=== PATIENT | female | born 1995 | race Caucasian/White ===

== ENCOUNTER 2017-04-01 02:33 | Emergency (ER) | payer MEDICAID ==
[2017-04-01] MEDS ORDERED: Lidocaine 1% 20 ML MDV INJECT ONE (03:26)
--- NOTE | 2017-04-01 03:48 | EDM.PDOC ---
ED HPI GENERAL MEDICAL PROBLEM - General Chief Complaint: Laceration Stated Complaint: LT ANKLE LACERATION Time Seen by Provider: 04/01/17 03:30 Source of Information: Reports: Patient History Limitations: Reports: No Limitations - History of Present Illness INITIAL COMMENTS - FREE TEXT/NARRATIVE: 22 yo female here for a self inflicted leg laceration. Tetanus is UTD. Has a hx of "cutting". Sees a counselor. Onset: Today Onset Date: 04/01/17 Onset Time: 02:25 Duration: Minutes:, Constant Location: Reports: Lower Extremity, Left Quality: Reports: Burning Severity: Moderate Improves with: Reports: None Worsens with: Reports: Other (touching wound) Context: Reports: Other (Hx of "cutting") Associated Symptoms: Reports: No Other Symptoms Treatments [employer] DEVELOPMENT: Reports: Other (see below) (None) L medial ankle Pain Score (Numeric/FACES): 5 - Related Data Allergies Allergy/AdvReac Type Severity Reaction Status Date / Time amoxicillin Allergy Hives Verified 02/24/16 15:40 latex Allergy Rash Verified 02/24/16 15:41 Sulfa (Sulfonamide Allergy Hives Verified 02/24/16 15:41 Antibiotics) Home Meds: Home Meds Propranolol HCl [Inderal Xl] 120 mg PO BEDTIME 04/01/17 [History] Venlafaxine [Effexor XR] 300 mg PO DAILY 04/01/17 [History] hydrOXYzine Pamoate [Vistaril] 50 mg PO BEDTIME 04/01/17 [History] lamoTRIgine [LaMICtal] 200 mg PO BEDTIME 04/01/17 [History] Past Medical History - Past Health History Medical/Surgical History: Denies Medical/Surgical History Respiratory History: Reports: Asthma Musculoskeletal History: Reports: Fracture Other Musculoskeletal History: fx R wrist & 5th digit Neurological History: Reports: Concussion, Migraines Psychiatric History: Reports: Anxiety, Dementia, Other (See Below) Other Psychiatric History: borderline personality disorder Endocrine/Metabolic History: Reports: Obesity/BMI 30+ - Past Surgical History HEENT Surgical History: Reports: Oral Surgery Musculoskeletal Surgical History: Reports: None Social & Family History - Family History Family Medical History: Noncontributory - Tobacco Use Smoking Status *Q: Current Every Day Smoker Years of Tobacco use: 2 Packs/Tins Daily: 0.4 - Caffeine Use Caffeine Use: Reports: Coffee, Soda, Tea - Recreational Drug Use Recreational Drug Use: No Recreational Drug Type: Reports: Marijuana/Hashish Recreational Drug Use Frequency: Socially ED ROS GENERAL - Review of Systems Review Of Systems: See Below Constitutional: Reports: No Symptoms Skin: Reports: Wound Neurological: Reports: No Symptoms Psychiatric: Reports: Anxiety Hematologic/Lymphatic: Denies: Anemia, Easy Bleeding, Easy Bruising ED EXAM, SKIN/RASH Exam: See Below Exam Limited By: No Limitations General Appearance: Alert, WD/WN, No Apparent Distress Extremities: No Pedal Edema Neurological: Alert, Oriented, CN II-XII Intact, Normal Cognition, No Motor/ Sensory Deficits Psychiatric: Normal Affect, Normal Mood Skin: Warm, Dry, Normal Color, No Rash, Other (3.5 cm linear laceration to the medial L distal leg. Bleeding controlled on arrival. No sign of infection. ) Location, Skin: Lower Extremity, Left Characteristics: Linear Lymphatic: No Adenopathy Course - Vital Signs Text/Narrative:: Wound cleanded by nursing. Anesth locally with 6 ml of 1% lidocaine. Closure with simple sutures of 5-0 Ethilon. A dressing was applied. Last Recorded V/S: Last Vital Signs Temp 36.7 C 04/01/17 02:42 Pulse 93 04/01/17 02:42 Resp 18 04/01/17 02:42 BP 124/88 04/01/17 02:42 Pulse Ox 100 04/01/17 02:42 - Orders/Labs/Meds Meds: Medications Discontinued Medications Generic Name Dose Route Start Last Admin Trade Name Khushbu PRN Reason Stop Dose Admin Lidocaine HCl 10 ml 04/01/17 03:26 Xylocaine 1% INJECT 04/01/17 03:27 ONETIME ONE Departure - Departure Time of Disposition: 03:55 Disposition: Home, Self-Care 01 Condition: Good Clinical Impression: Deliberate self-cutting Leg laceration Qualifiers: Encounter type: initial encounter Laterality: left Qualified Code(s): S81.812A - Laceration without foreign body, left lower leg, initial encounter - Discharge Information Referrals: PCP,None [Primary Care Provider] - Forms: ED Department Discharge Additional Instructions: Clean wound twice daily with soap and water. Dry. Apply Bacitracin ointment and a new dressing. Recheck for signs of infection. Make an appt for suture removal for about 8-9 days from now.
[2017-04-01 04:10] VITALS: BP 116/78
== END 2017-04-01 04:15 | disposition home or self-care (01) ==
LOC: FB.ED 02:33
DX: S81.812A Laceration without foreign body, left lower leg, initial encounter (principal); J45.909 Unspecified asthma, uncomplicated; F17.210 Nicotine dependence, cigarettes, uncomplicated; G43.909 Migraine, unspecified, not intractable, without status migrainosus; E66.9 Obesity, unspecified; Z72.89 Other problems related to lifestyle; Z91.040 Latex allergy status; Z88.1 Allergy status to other antibiotic agents; Z79.899 Other long term (current) drug therapy; Z98.890 Other specified postprocedural states; W45.8XXA Other foreign body or object entering through skin, initial encounter
CPT/HCPCS: 12002; 99282

== ENCOUNTER 2017-05-03 21:55 | Emergency (ER) | payer MEDICAID ==
[2017-05-04] MEDS ORDERED: traMADol 50 MG Tab PO ONE (00:21)
--- NOTE | 2017-05-04 00:21 | EDM.PDOC ---
ED HPI GENERAL MEDICAL PROBLEM - General Chief Complaint: Abdominal Pain Stated Complaint: ABD PAIN Time Seen by Provider: 05/03/17 22:14 Source of Information: Reports: Patient History Limitations: Reports: No Limitations - History of Present Illness INITIAL COMMENTS - FREE TEXT/NARRATIVE: 22 y.o.w.f came to the ed due top lower pelvic pain and vag bleed 1 week after she had a D&C due to a miscarriage. Pt has vag bleed since that time and is using one patch every 8 hours. She has dysuria as well. No N/V/D or any other acute medical issues. Onset: Unknown/Unsure Onset Date: 04/27/17 Onset Time: 08:00 Duration: Day(s): Location: Reports: Pelvis Quality: Reports: Burning, Dull Severity: Moderate Improves with: Reports: Immobilization Worsens with: Reports: Movement Context: Reports: Other (s/p D&C) Associated Symptoms: Reports: No Other Symptoms Lower Abdominal Pain Score (Numeric/FACES): 7 - Related Data Allergies Allergy/AdvReac Type Severity Reaction Status Date / Time amoxicillin Allergy Hives Verified 05/03/17 23:01 latex Allergy Rash Verified 05/03/17 23:01 Sulfa (Sulfonamide Allergy Hives Verified 05/03/17 23:01 Antibiotics) Home Meds: Home Meds Propranolol HCl [Inderal Xl] 120 mg PO BEDTIME 04/01/17 [History] Venlafaxine [Effexor XR] 300 mg PO DAILY 04/01/17 [History] hydrOXYzine Pamoate [Vistaril] 50 mg PO BEDTIME 04/01/17 [History] lamoTRIgine [LaMICtal] 200 mg PO BEDTIME 04/01/17 [History] Past Medical History - Past Health History Medical/Surgical History: Denies Medical/Surgical History Respiratory History: Reports: Asthma Musculoskeletal History: Reports: Fracture Other Musculoskeletal History: fx R wrist & 5th digit Neurological History: Reports: Concussion, Migraines Psychiatric History: Reports: Anxiety, Dementia, Other (See Below) Other Psychiatric History: borderline personality disorder Endocrine/Metabolic History: Reports: Obesity/BMI 30+ - Past Surgical History HEENT Surgical History: Reports: Oral Surgery Musculoskeletal Surgical History: Reports: None Social & Family History - Family History Family Medical History: Noncontributory - Tobacco Use Smoking Status *Q: Current Every Day Smoker Years of Tobacco use: 2 Packs/Tins Daily: 1 Used Tobacco, but Quit: No Second Hand Smoke Exposure: Yes - Caffeine Use Caffeine Use: Reports: Soda - Recreational Drug Use Recreational Drug Use: No Recreational Drug Type: Reports: Marijuana/Hashish Recreational Drug Use Frequency: Socially ED ROS GENERAL - Review of Systems Review Of Systems: See Below Constitutional: Reports: No Symptoms HEENT: Reports: No Symptoms Respiratory: Reports: No Symptoms Cardiovascular: Reports: No Symptoms Endocrine: Reports: No Symptoms GI/Abdominal: Reports: No Symptoms : Reports: No Symptoms Musculoskeletal: Reports: No Symptoms Skin: Reports: No Symptoms Neurological: Reports: No Symptoms Psychiatric: Reports: No Symptoms Hematologic/Lymphatic: Reports: No Symptoms Immunologic: Reports: No Symptoms ED EXAM, GI/ABD - Physical Exam Exam: See Below Exam Limited By: No Limitations General Appearance: Alert, WD/WN, No Apparent Distress, Mild Distress Eyes: Bilateral: Normal Appearance Ears: Normal External Exam Nose: Normal Inspection Throat/Mouth: Normal Inspection Head: Normocephalic Neck: Normal Inspection, Supple, Non-Tender Respiratory/Chest: No Respiratory Distress, Lungs Clear, Normal Breath Sounds, No Accessory Muscle Use Cardiovascular: Normal Peripheral Pulses, Regular Rate, Rhythm, No Edema, No Gallop, No JVD GI/Abdominal Exam: Normal Bowel Sounds, Soft, Non-Tender (Female) Exam: Adnexal Tenderness, Cervix Motion Tenderness Rectal (Female) Exam: Deferred Back Exam: Normal Inspection, Full Range of Motion Extremities: Normal Inspection, Normal Range of Motion, Non-Tender Neurological: Alert, Oriented, CN II-XII Intact, Normal Cognition Psychiatric: Normal Affect Skin Exam: Warm, Dry, Intact, Normal Color, No Rash Lymphatic: No Adenopathy Course - Vital Signs Text/Narrative:: 22 y.o.w.f came to the ed due top lower pelvic pain and vag bleed 1 week after she had a D&C due to a miscarriage. Pt has vag bleed since that time and is using one patch every 8 hours. She has dysuria as well. No N/V/D or any other acute medical issues. PE: Pelvic pain, Cervical os is closed, no blood in vaginal vault. Adnex tenderness Labs: CBC nl Impression: Pelvic pain Ex: Ultram Reexam: Improved. plan: D/C with instructions Last Recorded V/S: Last Vital Signs Temp 36.5 C 05/03/17 22:14 Pulse 72 05/04/17 00:41 Resp 16 05/04/17 00:41 BP 112/73 05/04/17 00:41 Pulse Ox 100 05/04/17 00:41 - Orders/Labs/Meds Labs: Laboratory Tests 05/03/17 05/03/17 05/03/17 Range/Units 22:05 23:30 23:30 WBC 9.3 (4.5-12.0) X10-3/uL RBC 4.33 (3.23-5.20) x10(6)uL Hgb 13.1 (11.5-15.5) g/dL Hct 38.8 (30.0-51.3) % MCV 89.6 (80-96) fL MCH 30.2 (27.7-33.6) pg MCHC 33.7 (32.2-35.4) g/dL RDW 12.2 (11.5-15.5) % Plt Count 307 (125-369) X10(3)uL MPV 8.1 (7.4-10.4) fL Neut % (Auto) 41.1 L (46-82) % Lymph % (Auto) 45.8 H (13-37) % Cabell % (Auto) 8.0 (4-12) % Eos % (Auto) 5 (1.0-5.0) % Baso % (Auto) 1 (0-2) % Neut # (Auto) 3.8 (1.6-8.3) # Lymph # (Auto) 4.3 (0.6-5.0) # Cabell # (Auto) 0.7 (0.0-1.3) # Eos # (Auto) 0.4 (0.0-0.8) # Baso # (Auto) 0.1 (0.0-0.2) # PT 9.7 (8.7-11.1) INR 0.96 (0.89-1.13) HCG, Quant (2.0 - ) mIU/mL Urine Color Yellow (YELLOW) Urine Appearance Clear (CLEAR) Urine pH 5.0 (5.0-6.5) Ur Specific Minter 1.020 (1.010-1.025) Urine Protein Negative (NEGATIVE) mg/dL Urine Glucose (UA) Normal (NEGATIVE) mg/dL Urine Ketones Negative (NEGATIVE) mg/dL Urine Occult Blood Negative (NEGATIVE) Urine Nitrite Negative (NEGATIVE) Urine Bilirubin Negative (NEGATIVE) Urine Urobilinogen Normal (NEGATIVE) mg/dL Ur Leukocyte Esterase Negative (NEGATIVE) Urine RBC 0-5 (0) Urine WBC 0-5 (0) Ur Squamous Epith Cells Moderate H (NS,R,O) Urine Bacteria Few H (NS) 05/03/17 Range/Units 23:30 WBC (4.5-12.0) X10-3/uL RBC (3.23-5.20) x10(6)uL Hgb (11.5-15.5) g/dL Hct (30.0-51.3) % MCV (80-96) fL MCH (27.7-33.6) pg MCHC (32.2-35.4) g/dL RDW (11.5-15.5) % Plt Count (125-369) X10(3)uL MPV (7.4-10.4) fL Neut % (Auto) (46-82) % Lymph % (Auto) (13-37) % Cabell % (Auto) (4-12) % Eos % (Auto) (1.0-5.0) % Baso % (Auto) (0-2) % Neut # (Auto) (1.6-8.3) # Lymph # (Auto) (0.6-5.0) # Cabell # (Auto) (0.0-1.3) # Eos # (Auto) (0.0-0.8) # Baso # (Auto) (0.0-0.2) # PT (8.7-11.1) INR (0.89-1.13) HCG, Quant < 2 L (2.0 - ) mIU/mL Urine Color (YELLOW) Urine Appearance (CLEAR) Urine pH (5.0-6.5) Ur Specific Minter (1.010-1.025) Urine Protein (NEGATIVE) mg/dL Urine Glucose (UA) (NEGATIVE) mg/dL Urine Ketones (NEGATIVE) mg/dL Urine Occult Blood (NEGATIVE) Urine Nitrite (NEGATIVE) Urine Bilirubin (NEGATIVE) Urine Urobilinogen (NEGATIVE) mg/dL Ur Leukocyte Esterase (NEGATIVE) Urine RBC (0) Urine WBC (0) Ur Squamous Epith Cells (NS,R,O) Urine Bacteria (NS) Meds: Medications Discontinued Medications Generic Name Dose Route Start Last Admin Trade Name Khushbu PRN Reason Stop Dose Admin Tramadol HCl 50 mg 05/04/17 00:21 05/04/17 00:40 Ultram PO 05/04/17 00:22 50 mg ONETIME ONE Administration Departure - Departure Time of Disposition: 00:17 Disposition: Home, Self-Care 01 Condition: Good Clinical Impression: Pelvic pain - Discharge Information Referrals: PCP,Not In Area [Primary Care Provider] - Forms: ED Department Discharge, ED Return to Work/School Form Additional Instructions: Please get the Pelvic US doen at 1 pm 05/04/2017 as scheduled, please f/u with your PMD, come back if your symptoms get worse acutely.
[2017-05-04 00:42] VITALS: BP 112/73
== END 2017-05-04 00:50 | disposition home or self-care (01) ==
LOC: FB.ED 21:55
DX: R10.2 Pelvic and perineal pain (principal); J45.909 Unspecified asthma, uncomplicated; G43.909 Migraine, unspecified, not intractable, without status migrainosus; F41.9 Anxiety disorder, unspecified; E66.9 Obesity, unspecified; F17.210 Nicotine dependence, cigarettes, uncomplicated; Z88.1 Allergy status to other antibiotic agents; Z91.040 Latex allergy status; Z88.2 Allergy status to sulfonamides; Z79.899 Other long term (current) drug therapy; Z68.31 Body mass index [BMI] 31.0-31.9, adult
CPT/HCPCS: 36415; 81001; 84702; 85025; 85610; 99283; A9270; 87491; 87591

== ENCOUNTER 2018-03-12 03:43 | Emergency (ER) | payer MEDICAID ==
[2018-03-12] MEDS ORDERED: Ondansetron 4 MG/2 ML SDV ONE ×2 (05:19)
[2018-03-12] MEDS: Sodium Chloride 0.9% 10 ML Syringe FLUSH PRN ×2 (05:20→08:41)
[2018-03-12] MEDS ORDERED: Ondansetron 4 MG/2 ML SDV IVPUSH ONE (05:20)
[2018-03-12] MEDS ORDERED: Metoclopramide 10 MG/2 ML SDV IVPUSH ONE (05:59)
[2018-03-12] MEDS ORDERED: LORazepam 2 MG/ML SDV IVPUSH ONE ×3 (06:00→08:37)
[2018-03-12] MEDS ORDERED: NS + KCl 20mEq/L 1,000 ML IV SCH ×2 (06:30→08:00)
--- NOTE | 2018-03-12 07:13 | ER ---
DATE SEEN: 03/12/2018 CHIEF COMPLAINT: Overdose. HISTORY OF PRESENT ILLNESS: This is a 22-year-old female brought in by friends after they heard her take pills, unknown amount of Lamictal, perhaps some Effexor, and Vistaril as well. She allegedly mentioned to the friend that she had taken 2000 mg of Lamictal. This was in an attempt to harm herself for an unclear reason. She does suffer from depression. Further history is unavailable, but upon arrival to the ER, she was restless, agitated, and retching actively. REVIEW OF SYSTEMS: There was no report of any fever. SOCIAL HISTORY: She does not use alcohol or drugs. PHYSICAL EXAMINATION: GENERAL: She is very restless. VITAL SIGNS: Initial blood pressure and temperature normal. HEAD: Normocephalic. EYES: Pupils are dilated, but equal. NECK: Supple. CHEST: Clear. CARDIOVASCULAR: Normal with exception of tachycardia. EXTREMITIES: No edema. ABDOMEN: Soft. MENTAL STATUS: She is disoriented, agitated, and restless. She does not respond to verbal commands, but she does open her eyes spontaneously. INITIAL LABS: White cell count is 13.6. Potassium is 2.9, calcium is 10.3. Alcohol is less than 0.03. Urine drug screen is pending. EKG showed sinus tachycardia. IMPRESSION: 1. Lamictal overdose. 2. Suicidal attempt. PLAN: 1. We will start normal saline at 150 an hour with 20 of KCl. 2. We will give Reglan and Zofran as needed to control the retching and vomiting. 3. The patient was placed in 4-point restraints for safety reasons. 4. Lorazepam was attempted [address] Vargas will take over care to determine disposition and further treatment. /[id number] TN/MODL
[2018-03-12 08:38] VITALS: BP 131/67
[2018-03-12 08:59] LABS: ACETAMINOPHEN < 2 ug/mL (10-30)
--- NOTE | 2018-03-12 10:36 | ER ---
DATE SEEN: 03/12/2018 HISTORY OF PRESENT ILLNESS: This is a hand-off patient from Dr. Martins. The patient was outpatient at 0345 hours this morning. At this time,15 minutes before- 0330, the patient took 2000 mg of Lamictal at 0230 hours, and she arrived to the ER with a friend and also her boyfriend. She is staying at the boyfriend's house with the boyfriend's [id number] and the boyfriend. She has been disowned by her mother. Father lives in [place], [place], and is not interested in coming here to see her. The patient is noted to have possibly overdosed on Effexor. She takes 300 mg daily, propranolol 120 mg at bedtime, hydroxyzine 50 mg at bedtime, and lamotrigine 200 mg at bedtime. ALLERGIES: To Amoxil, latex, and sulfa. PAST MEDICAL HISTORY: She has history of self-cutting, anxiety disorder, and is being followed by Dr. Elise, who has prescribed the above medicines. The patient presented in 4-point restraints, because she was so restless and thrashing about. She has received 1 mg of Ativan IV with Lamictal for potential for seizure disorder. The patient's status was discussed with Poison Control, by Dr. Martins. There is no one at her bedside, except for a nurse. PHYSICAL EXAMINATION: HEENT: The patient has vertical nystagmus and has a startle reflex. When turned and addressed, she looks at me like "a deer in the headlights". With the lights out, her pupils are 11 mm, and with lights on, they go down to 3 to 4 mm. Eye grounds have normal appearance. The optic cup has normal appearance. Hearing is good. Pharynx without abnormality. Gag in place. She is protecting her airway. NECK: Without thyromegaly or masses in neck. No cervical adenopathy or accessory muscle use. LUNGS: Clear without rales, rhonchi, or wheezes. HEART: S1, S2. No irregular rate or rhythm. She has a mild sinus tachycardia in the 120s. CHEST: No chest wall discomfort. ABDOMEN: Nontender. No guarding. No abdominal discomfort. Bowel sounds present. EXTREMITIES: Old scarring, left lower extremity, she had self- cutting. She has a large cut on her right thigh that is partial dermal thickness of 6 cm. Of note, she has also a scar in the upper extremities with self-cutting. IV is in place. The patient's deep tendon reflexes are 1+ to 2+, active, symmetrical. NEUROLOGIC: Cranial nerves 2 through 12 intact. Orientation, unable to test because she does not respond to my questions. She groans and cries out musical tone intermittently and disliking of her restraints. She has restraints in place, because she is thrashing out so much. No seizure-like activity is noted. No incontinence noted. No tongue biting noted. No fasciculation of her tongue. Muscle strength is good. She resists the restraints. LABORATORY FINDINGS: She has hypokalemia with a blood potassium of 2.9, sodium 140, chloride 103, and bicarb is 21. Creatinine is 0.8, BUN 17, BUN/creatinine ratio of 21.3, the latter suggests dehydration, mild. Calcium is 10.3. TSH is elevated at 3.85, which suggests perhaps she may have underlying hypothyroidism, probably needs to be retested. HCG was negative. She has salicylates and acetaminophen that are not elevated. No alcohol elevation. Urine toxicology screen is pending. EKG demonstrated sinus tachycardia without an increased QRS or QT interval. QT is 263 milliseconds. Heart rate on the TTT was 147. ASSESSMENT: 1. Drug overdose. 2. History of depression and anxiety disorder. Uses Effexor, Inderal, Vistaril, and Lamictal. Lamictal overdose of 2000 mg at approximately 0330 hours. 3. The patient is dysphoric with the Lamictal response. 4. The vertical nystagmus may reflect underlying seizure activity, Lamictal induced. Consequently, Ativan dose additionally was given. 5. Mild obesity. 6. Self-cutting history and documentation with laceration repair in ED. 7. Indeterminate if she has new central nervous system abnormality causing the vertical nystagmus. PLAN: I have discussed the patient's case with Dr. Goncalves and Dr. Landa, hospitalist at [facility]. Dr. Goncalves suggests getting an MRI to validate that nothing is abnormal in the brain. We have tried 2 mg of Ativan, and she is still restless and agitated. Consequently, the plans are to have her get anesthesia at [facility] and have an MRI obtained at that point. The patient will be transferred by ambulance. Pressure has been stable. It is possible that she may have other agents causing her restlessness and dysphoria. Time spent with the patient, 2 hours. The patient's care was transferred from Dr. Martins to sc at 0700 hours. /[id number] WILBER/THERESE GARZA
== END 2018-03-12 09:39 ==
LOC: FB.ED 03:43
DX: T43.211A Poisoning by selective serotonin and norepinephrine reuptake inhibitors, accidental (unintentional), initial encounter (principal); F41.9 Anxiety disorder, unspecified; F32.9 Major depressive disorder, single episode, unspecified; E66.9 Obesity, unspecified; H55.00 Unspecified nystagmus; G40.909 Epilepsy, unspecified, not intractable, without status epilepticus; E87.6 Hypokalemia; Z91.5 Personal history of self-harm; Z88.2 Allergy status to sulfonamides; Z91.040 Latex allergy status
CPT/HCPCS: 36415; 80048; 84443; 84702; 85025; 93005; G0480; J2060; J2405; J2765; J3480; J7050

== ENCOUNTER 2019-03-12 22:35 | Emergency (ER) | payer MEDICARE, MEDICAID ==
[2019-03-12] MEDS ORDERED: LORazepam 0.5 MG Tab PO ONE (22:51)
--- NOTE | 2019-03-12 22:55 | EDM.PDOCBH ---
ED HPI GENERAL MEDICAL PROBLEM - General Stated Complaint: ANXIETY Time Seen by Provider: 03/12/19 22:35 Source of Information: Reports: Patient History Limitations: Reports: No Limitations - History of Present Illness INITIAL COMMENTS - FREE TEXT/NARRATIVE: 23 y.o.w.f with a H/O anxiety came to the ED stating she is very anxious, hyperventilating, took Vistaril PULP GRINDER which did not help and she must work at 11 pm tonight. Pt took one Vistril at 1 pm. at 6 pm and PULP GRINDER with out help. No N/V/ D no dizziness or any other acute med issues. BP 147/99 RR 18 Pulse ox 99% on RA Temp 36.6 Pulse 115 Onset Date: 03/12/19 Onset Time: 08:00 Duration: Hour(s):, Intermittent Location: Reports: Generalized Quality: Reports: Same as Previous Episode Improves with: Reports: Medication Worsens with: Reports: Other Context: Reports: Other Associated Symptoms: Reports: Other (fingers numb) Treatments PULP GRINDER: Reports: Other (see below) ([place]) - Related Data Allergies Allergy/AdvReac Type Severity Reaction Status Date / Time amoxicillin Allergy Hives Verified 03/12/18 05:35 latex Allergy Rash Verified 03/12/18 05:35 Sulfa (Sulfonamide Allergy Hives Verified 03/12/18 05:35 Antibiotics) Home Meds: Home Meds hydrOXYzine pamoate [Vistaril] 50 mg PO BEDTIME 04/01/17 [History] Gabapentin [Neurontin] 100 mg PO DAILY PRN 03/12/19 [History] Levonorgestrel-Ethin Estradiol [Falmina-28 Tablet] 1 tab PO DAILY 03/12/19 [ History] Lurasidone HCl [Latuda] 20 mg PO DAILY 03/12/19 [History] Past Medical History - Past Health History Medical/Surgical History: Denies Medical/Surgical History Respiratory History: Reports: Asthma Musculoskeletal History: Reports: Fracture Other Musculoskeletal History: Hx fracture of right wrist & 5th digit. Neurological History: Reports: Concussion, Migraines Psychiatric History: Reports: Anxiety, Dementia, Suicide Attempt, Other (See Below) Other Psychiatric History: Borderline personality disorder. Cutting behaviors. Endocrine/Metabolic History: Reports: Obesity/BMI 30+ - Past Surgical History HEENT Surgical History: Reports: Oral Surgery Social & Family History - Family History Family Medical History: Noncontributory - Caffeine Use Caffeine Use: Reports: Soda ED ROS GENERAL - Review of Systems Review Of Systems: See Below Constitutional: Reports: No Symptoms HEENT: Reports: No Symptoms Respiratory: Reports: No Symptoms Cardiovascular: Reports: No Symptoms Endocrine: Reports: No Symptoms GI/Abdominal: Reports: No Symptoms : Reports: No Symptoms Musculoskeletal: Reports: No Symptoms Skin: Reports: No Symptoms Neurological: Reports: No Symptoms Psychiatric: Reports: Anxiety Hematologic/Lymphatic: Reports: No Symptoms Immunologic: Reports: No Symptoms ED EXAM, BEHAVIORAL HEALTH - Physical Exam Exam: See Below Exam Limited By: No Limitations General Appearance: Alert, WD/WN, Mild Distress Eye Exam: Bilateral Eye: Normal Inspection Ears: Normal External Exam, Normal Canal Nose: Normal Inspection, Normal Mucosa Throat/Mouth: Normal Inspection, Normal Lips, Normal Voice, No Airway Compromise Head: Atraumatic, Normocephalic Neck: Normal Inspection, Supple, Non-Tender, Full Range of Motion Respiratory/Chest: No Respiratory Distress, Lungs Clear, Normal Breath Sounds, Chest Non-Tender Cardiovascular: Normal Peripheral Pulses, Regular Rate, Rhythm, No Edema, No Gallop GI/Abdominal: Normal Bowel Sounds, Soft, Non-Tender, No Organomegaly (Female) Exam: Deferred Rectal (Female) Exam: Deferred Back Exam: Normal Inspection, Full Range of Motion Extremities: Normal Inspection, Normal Range of Motion, Non-Tender, No Pedal Edema Neurological: Alert, Normal Mood/Affect, CN II-XII Intact, Normal Cognition, No Motor/Sensory Deficits, Oriented x 3 Psychiatric: Alert, Depressed Mood, Tearful, Other (hyperventilaiting ) Skin Exam: Warm, Dry, Intact, Normal color, No rash COURSE, BEHAVIORAL HEALTH COMP - Course Vital Signs: Last Vital Signs Temp 36.6 C 03/12/19 22:35 Pulse 118 H 03/12/19 22:35 Resp 18 03/12/19 22:35 BP 147/99 H 03/12/19 22:35 Pulse Ox 97 03/12/19 22:35 23 y.o.w.f with a H/O anxiety came to the ED stating she is very anxious, hyperventilating, took Vistaril PULP GRINDER which did not help and she must work at 11 pm tonight. Pt took one Vistril at 1 pm. at 6 pm and PULP GRINDER with out help. No N/V/ D no dizziness or any other acute med issues. BP 147/99 RR 18 Pulse ox 99% on RA Temp 36.6 Pulse 115 PE: WNWD W F with hyperventilation, improving Impression: Anxiety Tx: 0.5 mg Ativan to take home Reexam: Pt was doing fine in the ED Plan: D/C with instructions Orders, Labs, Meds: Medications Discontinued Medications Generic Name Dose Route Start Last Admin Trade Name Khushbu PRN Reason Stop Dose Admin Lorazepam 0.5 mg 03/12/19 22:51 03/12/19 22:58 Ativan PO 03/12/19 22:52 0.5 mg ONETIME ONE Administration Departure - Departure Time of Disposition: 22:52 Disposition: Home, Self-Care 01 Condition: Good Clinical Impression: Anxiety - Discharge Information Instructions: Panic Attack, [id number] Referrals: PCP,None [Primary Care Provider] - Forms: ED Return to Work/School Form Additional Instructions: Please take the 0.5 mg of Ativan as soon as you are at home, please cont your current meds, please f/u, come back if your symptoms get worse acutely
[2019-03-12 23:10] VITALS: BP 147/99
== END 2019-03-12 23:00 | disposition home or self-care (01) ==
LOC: FB.ED 22:35
DX: F41.9 Anxiety disorder, unspecified (principal); J45.909 Unspecified asthma, uncomplicated; Z88.1 Allergy status to other antibiotic agents; Z91.040 Latex allergy status; Z88.2 Allergy status to sulfonamides; Z79.899 Other long term (current) drug therapy
CPT/HCPCS: 99283; A9270

== ENCOUNTER 2019-05-07 17:14 | Emergency (ER) | payer MEDICARE, MEDICAID ==
--- NOTE | 2019-05-07 17:53 | EDM.PDOC ---
ED HPI GENERAL MEDICAL PROBLEM - General Stated Complaint: -CRAMPING Time Seen by Provider: 05/07/19 17:14 Source of Information: Reports: Patient History Limitations: Reports: No Limitations - History of Present Illness INITIAL COMMENTS - FREE TEXT/NARRATIVE: 24 y.o.w.f AB0, came to the ed because of pelvic cramping. Pt's last NMP was 03/18/19 Expected delivery 12/23/19 No trauma. no bleed. No N/V/D. No Dizziness No SOB or any other acute med issues. BP 114/65 RR 18 Pulse ox 98% on RA Temp 36.8 pulse 93 Onset Date: 05/07/19 Onset Time: 14:00 Duration: Hour(s):, Intermittent Location: Reports: Pelvis (cramping 7 weeks ) Quality: Reports: Dull Severity: Mild Improves with: Reports: None Worsens with: Reports: None Context: Reports: Other (7 weeks ) Associated Symptoms: Reports: No Other Symptoms Abdomen Pain Score (Numeric/FACES): 3 - Related Data Allergies Allergy/AdvReac Type Severity Reaction Status Date / Time amoxicillin Allergy Hives Verified 03/12/18 05:35 latex Allergy Rash Verified 03/12/18 05:35 Sulfa (Sulfonamide Allergy Hives Verified 03/12/18 05:35 Antibiotics) Home Meds: Home Meds hydrOXYzine pamoate [Vistaril] 50 mg PO BEDTIME 04/01/17 [History] Gabapentin [Neurontin] 100 mg PO DAILY PRN 03/12/19 [History] Levonorgestrel-Ethin Estradiol [Falmina-28 Tablet] 1 tab PO DAILY 03/12/19 [ History] Lurasidone HCl [Latuda] 20 mg PO DAILY 03/12/19 [History] Past Medical History - Past Health History Medical/Surgical History: Denies Medical/Surgical History Respiratory History: Reports: Asthma Musculoskeletal History: Reports: Fracture Other Musculoskeletal History: Hx fracture of right wrist & 5th digit. Neurological History: Reports: Concussion, Migraines Psychiatric History: Reports: Anxiety, Dementia, Suicide Attempt, Other (See Below) Other Psychiatric History: Borderline personality disorder. Cutting behaviors. Endocrine/Metabolic History: Reports: Obesity/BMI 30+ - Past Surgical History HEENT Surgical History: Reports: Oral Surgery Social & Family History - Family History Family Medical History: Noncontributory - Caffeine Use Caffeine Use: Reports: Soda ED ROS GENERAL - Review of Systems Review Of Systems: See Below Constitutional: Reports: No Symptoms HEENT: Reports: No Symptoms Respiratory: Reports: No Symptoms Cardiovascular: Reports: No Symptoms Endocrine: Reports: No Symptoms GI/Abdominal: Reports: No Symptoms : Reports: Other (cramping) Musculoskeletal: Reports: No Symptoms Skin: Reports: No Symptoms Neurological: Reports: No Symptoms Psychiatric: Reports: No Symptoms Hematologic/Lymphatic: Reports: No Symptoms Immunologic: Reports: No Symptoms ED EXAM - Physical Exam Exam: See Below Exam Limited By: No Limitations General Appearance: Alert, WD/WN, Mild Distress Eye Exam: Bilateral Eye: Normal Inspection Ears: Normal External Exam Nose: Normal Inspection Throat/Mouth: Normal Inspection, Normal Lips, Normal Teeth, Normal Voice, No Airway Compromise Head: Atraumatic, Normocephalic Neck: Normal Inspection, Supple, Non-Tender Respiratory/Chest: No Respiratory Distress, Lungs Clear, Normal Breath Sounds, No Accessory Muscle Use, Chest Non-Tender Cardiovascular: Normal Peripheral Pulses, Regular Rate, Rhythm, No Edema, No Murmur, No Rub GI/Abdominal Exam: Normal Bowel Sounds, Soft, Non-Tender, No Organomegaly, Pelvis Stable Rectal Exam: Deferred (Female) Exam: Normal External Exam, Normal Speculum Exam, Deferred for Placenta Previa Heart Tones: Not [place] Back Exam: Normal Inspection Extremities: Normal Inspection, Normal Range of Motion Neurological: Alert, Oriented, CN II-XII Intact, Normal Cognition, Normal Gait Psychiatric: Normal Affect, Normal Mood, Anxious Skin Exam: Warm, Dry, Intact, Normal Color, No Rash Lymphatic: No Adenopathy Course - Vital Signs Text/Narrative:: 24 y.o.w.f AB0, came to the ed because of pelvic cramping. Pt's last NMP was 03/18/19 Expected delivery 12/23/19 No trauma. no bleed. No N/V/D. No Dizziness No SOB or any other acute med issues. BP 114/65 RR 18 Pulse ox 98% on RA Temp 36.8 pulse 93 PE: WNWD W F 7 weeks Pelvic: Speculum exam only: Cervical Os is closed, no bleed Labs: UA neg Impression: 7 weeks with pelvic cramping Tx: None Reexam: Pt was doing fine in the ed. Plan: D/C with instructions Last Recorded V/S: Last Vital Signs Temp 36.6 C 05/07/19 17:18 Pulse 94 05/07/19 17:18 Resp 18 05/07/19 17:18 BP 114/65 05/07/19 17:18 Pulse Ox 98 05/07/19 17:18 - Orders/Labs/Meds Labs: Laboratory Tests 05/07/19 Range/Units 15:35 Urine Color Yellow (YELLOW) Urine Appearance Clear (CLEAR) Urine pH 6.5 (5.0-6.5) Ur Specific Gays 1.005 L (1.010-1.025) Urine Protein Negative (NEGATIVE) mg/dL Urine Glucose (UA) Normal (NORMAL) mg/dL Urine Ketones Negative (NEGATIVE) mg/dL Urine Occult Blood Negative (NEGATIVE) Urine Nitrite Negative (NEGATIVE) Urine Bilirubin Negative (NEGATIVE) Urine Urobilinogen Normal (NEGATIVE) mg/dL Ur Leukocyte Esterase Negative (NEGATIVE) Urine RBC 0-5 (0-5) Urine WBC 0-5 (0-5) Ur Squamous Epith Cells Rare (NS,R,O) Urine Bacteria Rare H (NS) Departure - Departure Time of Disposition: 18:24 Disposition: Home, Self-Care 01 Condition: Good Clinical Impression: 7 weeks gestation of , Abdominal cramping affecting - Discharge Information Referrals: PCP,None [Primary Care Provider] - Additional Instructions: Please take Tylenol for pain, please f/u with your OBGYN. Please come back if your symptoms get worse acutely
[2019-05-07 18:41] VITALS: BP 114/65; PULSE 94
== END 2019-05-07 19:00 | disposition home or self-care (01) ==
LOC: FB.ED 17:14
DX: O99.89 Other specified diseases and conditions complicating pregnancy, childbirth and the puerperium (principal); R10.2 Pelvic and perineal pain; O99.211 Obesity complicating pregnancy, first trimester; O99.341 Other mental disorders complicating pregnancy, first trimester; F03.90 Unspecified dementia, unspecified severity, without behavioral disturbance, psychotic disturbance, mood disturbance, and anxiety; Z88.2 Allergy status to sulfonamides; Z91.040 Latex allergy status; Z88.1 Allergy status to other antibiotic agents; Z3A.01 Less than 8 weeks gestation of pregnancy
CPT/HCPCS: 81001; 99283; 99284

== ENCOUNTER → 2019-08-25 | Outpatient (CLI) | payer OTHER | LOC: FB.CLBR 19:06 | PROVIDERS: ATTEND Nurse Practitioner Family | DX: S09.93XA Unspecified injury of face, initial encounter (principal); Y99.0 Civilian activity done for income or pay | CPT/HCPCS: 36415; 80305-QW; G0480 ==

== ENCOUNTER 2019-08-28 16:33 | Outpatient (CLI) | payer OTHER, MEDICARE, MEDICAID ==
[2019-08-28 18:12] VITALS: BP 137/80; PULSE 97
== END 2019-08-28 18:13 | disposition home or self-care (01) ==
LOC: FB.OBCHECK 16:33 → FB.OB 16:35 → FB.OBCHECK 18:13
PROVIDERS: ATTEND Family Medicine
DX: O09.90 Supervision of high risk pregnancy, unspecified, unspecified trimester (principal)
CPT/HCPCS: 36415; 99000; 99211

== ENCOUNTER 2019-12-16 21:52 | Emergency (ER) | payer MEDICAID, MEDICARE ==
--- NOTE | 2019-12-16 22:17 | EDM.PDOC ---
ED HPI GENERAL MEDICAL PROBLEM - General Chief Complaint: General Stated Complaint: fell in shower Time Seen by Provider: 12/16/19 22:10 Source of Information: Reports: Patient History Limitations: Reports: No Limitations - History of Present Illness INITIAL COMMENTS - FREE TEXT/NARRATIVE: pt is 39 weeks States she was taking a shower , slipped and fell and hit her right side on the tub has pain in the area of the right flank, has no bruising concerned she si not feeling baby as usually denies any contraction no water leakage noted Ultrasound not available in hospital Onset: Today Onset Date: 12/16/19 Onset Time: 21:30 Duration: Improving Location: Reports: Abdomen (right side) Quality: Reports: Ache, Dull Severity: Moderate Improves with: Reports: Rest Worsens with: Reports: None Context: Reports: Other (fell in bathtub) Associated Symptoms: Reports: No Other Symptoms right side pain Pain Score (Numeric/FACES): 4 - Related Data Allergies Allergy/AdvReac Type Severity Reaction Status Date / Time amoxicillin Allergy Hives Verified 12/16/19 21:59 latex Allergy Rash Verified 12/16/19 21:59 Sulfa (Sulfonamide Allergy Hives Verified 12/16/19 21:59 Antibiotics) Home Meds: Home Meds [id number]/Iron Fumarate/FA/DSS [ 19 Tablet] 1 tab PO DAILY 08/28/19 [ History] Past Medical History - Past Health History Medical/Surgical History: Denies Medical/Surgical History Respiratory History: Reports: Asthma 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 Neurological History: Reports: Concussion, Migraines Psychiatric History: Reports: Anxiety, Depression, Psych Hospitalization(s), Suicide Attempt, Other (See Below) Other Psychiatric History: Borderline personality disorder. Cutting behaviors. Endocrine/Metabolic History: Reports: Obesity/BMI 30+ - Past Surgical History HEENT Surgical History: Reports: Oral Surgery Other HEENT Surgeries/Procedures: wisdom teeth extracted in past Social & Family History - Family History Family Medical History: Noncontributory - Caffeine Use Caffeine Use: Reports: Coffee ED ROS GENERAL - Review of Systems Review Of Systems: See Below Constitutional: Reports: No Symptoms HEENT: Reports: No Symptoms Respiratory: Reports: No Symptoms Cardiovascular: Reports: No Symptoms Endocrine: Reports: No Symptoms GI/Abdominal: Reports: Abdominal Pain (right flank pain where she hit on the tub) : Reports: No Symptoms Musculoskeletal: Reports: No Symptoms Skin: Reports: No Symptoms Neurological: Reports: No Symptoms Psychiatric: Reports: No Symptoms ED EXAM, GENERAL - Physical Exam Exam: See Below Exam Limited By: Uncooperative General Appearance: Alert, WD/WN, No Apparent Distress Eye Exam: Bilateral Eye: EOMI Ears: Normal External Exam Ear Exam: Bilateral Ear: Auricle Normal Nose: Normal Inspection Throat/Mouth: Normal Inspection Head: Atraumatic Neck: Normal Inspection, Supple, Non-Tender Respiratory/Chest: Lungs Clear, Normal Breath Sounds Cardiovascular: Normal Peripheral Pulses, Regular Rate, Rhythm GI/Abdominal: Soft, Other (gravid , tenderness on palpation along the right flank, in the ischial region ) Back Exam: CVA Tenderness (R) Extremities: Normal Range of Motion Neurological: Alert, Oriented, CN II-XII Intact Psychiatric: Normal Affect Course - Vital Signs Last Recorded V/S: Last Vital Signs Temp 37.1 C 12/16/19 21:55 Pulse 96 12/16/19 21:55 Resp 22 H 12/16/19 21:55 BP 152/84 H 12/16/19 21:55 Pulse Ox 100 12/16/19 21:55 - Orders/Labs/Meds Labs: Laboratory Tests 12/16/19 Range/Units 22:13 Urine Color Yellow (YELLOW) Urine Appearance Clear (CLEAR) Urine pH 7.0 H (5.0-6.5) Ur Specific [place] 1.010 (1.010-1.025) Urine Protein Negative (NEGATIVE) mg/dL Urine Glucose (UA) Normal (NORMAL) mg/dL Urine Ketones Negative (NEGATIVE) mg/dL Urine Occult Blood Negative (NEGATIVE) Urine Nitrite Negative (NEGATIVE) Urine Bilirubin Negative (NEGATIVE) Urine Urobilinogen Normal (NEGATIVE) mg/dL Ur Leukocyte Esterase Small H (NEGATIVE) Urine RBC 0-5 (0-5) Urine WBC 0-5 (0-5) Ur Squamous Epith Cells Moderate H (NS,R,O) Urine Bacteria Moderate H (NS) - Re-Assessments/Exams Free Text/Narrative Re-Assessment/Exam: 12/16/19 23:22 monitor done Fetus showing good accels , no decels , Mother has no contractions still no LOF abd pain improved on the right flank patient will follow up with [facility] provider Departure - Departure Time of Disposition: 23:20 Disposition: Home, Self-Care 01 Clinical Impression: Fall, Acute right flank pain, with 39 completed weeks gestation - Discharge Information *PRESCRIPTION DRUG MONITORING PROGRAM REVIEWED*: Not Applicable *COPY OF PRESCRIPTION DRUG MONITORING REPORT IN PATIENT JAZMIN: Not Applicable Referrals: PCP,None [Primary Care Provider] - Forms: ED Department Discharge Additional Instructions: Make appointment to see your [facility] provider in 3-5 days If pain gets worse return to ER or see your [facility] provider Sepsis Event Note - Focused Exam Vital Signs: Vital Signs Temp Pulse Resp BP Pulse Ox 12/16/19 21:55 37.1 C 96 22 H 152/84 H 100 Date Exam was Performed: 12/16/19 Time Exam was Performed: 23:20
[2019-12-16 22:24] VITALS: BP 152/84; PULSE 96
== END 2019-12-16 22:15 | disposition home or self-care (01) ==
LOC: FB.ED 21:52
DX: O99.89 Other specified diseases and conditions complicating pregnancy, childbirth and the puerperium (principal); R10.9 Unspecified abdominal pain; O99.513 Diseases of the respiratory system complicating pregnancy, third trimester; J45.909 Unspecified asthma, uncomplicated; O99.213 Obesity complicating pregnancy, third trimester; Z88.1 Allergy status to other antibiotic agents; Z91.040 Latex allergy status; Z88.2 Allergy status to sulfonamides; Z3A.39 39 weeks gestation of pregnancy; W18.2XXA Fall in (into) shower or empty bathtub, initial encounter
CPT/HCPCS: 81001; 99283; 99284

== ENCOUNTER 2021-02-05 16:51 | Emergency (ER) | payer MEDICARE, MEDICAID ==
--- NOTE | 2021-02-05 18:00 | EDM.PDOC ---
ED HPI GENERAL MEDICAL PROBLEM - General Stated Complaint: PASSED OUT AT WORK Time Seen by Provider: 02/05/21 17:00 Source of Information: Reports: Patient History Limitations: Reports: No Limitations - History of Present Illness INITIAL COMMENTS - FREE TEXT/NARRATIVE: Patient presented to the ED because of a syncopal episode. She was at work felt lightheaded with associated tinnitus and then fell on the linoleum floor. She c/o headache over the occipital area. No injuries sustained after the fall. 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 Neurological History: Reports: Concussion, Migraines Psychiatric History: Reports: Anxiety, Depression, Psych Hospitalization(s), Suicide Attempt, Other (See Below) Other Psychiatric History: Borderline personality disorder. Cutting behaviors. Endocrine/Metabolic History: Reports: Obesity/BMI 30+ - Past Surgical History HEENT Surgical History: Reports: Oral Surgery Other HEENT Surgeries/Procedures: wisdom teeth extracted in past Social & Family History - Family History Family Medical History: No Pertinent Family History - Caffeine Use Caffeine Use: Reports: Coffee ED ROS GENERAL - Review of Systems Review Of Systems: See Below Constitutional: Reports: No Symptoms HEENT: Reports: No Symptoms Respiratory: Reports: No Symptoms Cardiovascular: Reports: No Symptoms Endocrine: Reports: No Symptoms GI/Abdominal: Reports: No Symptoms : Reports: No Symptoms Musculoskeletal: Reports: No Symptoms Skin: Reports: No Symptoms Neurological: Reports: Dizziness, Syncope Psychiatric: Reports: No Symptoms ED EXAM, NEURO - Physical Exam Exam: See Below Exam Limited By: No Limitations General Appearance: Alert, No Apparent Distress Eye Exam: Bilateral Eye: PERRL Ears: Normal External Exam, Normal Canal Nose: Normal Inspection Throat/Mouth: Normal Inspection Head Exam: Atraumatic, Normocephalic Neck: Normal Inspection, Supple, Non-Tender, Full Range of Motion Respiratory/Chest: No Respiratory Distress, Lungs Clear, Normal Breath Sounds, No Accessory Muscle Use, Chest Non-Tender Cardiovascular: Normal Peripheral Pulses, Regular Rate, Rhythm, No Edema GI/Abdominal: Normal Bowel Sounds, Soft Neurological: Alert, Normal Mood/Affect, Normal Dorsiflexion, CN II-XII Intact, Normal Plantar Flexion, Normal Gait, Normal Reflexes, No Motor/Sensory Deficits, Oriented x 3 #1 Interpretation EKG Date: 02/05/21 Time: 17:49 Rhythm: NSR Rate (Beats/Min): 84 Embudo: Normal P-Wave: Present QRS: Normal ST-T: Normal QT: Normal Comparison: NA - No Prior EKG EKG Interpretation Comments: NSR Course - Vital Signs Text/Narrative:: lab/EKG,Head Ct result was discussed with patient Doen't want anything for her headache Last Recorded V/S: Last Vital Signs Temp 36.9 C 02/05/21 16:51 Pulse 98 02/05/21 16:51 Resp 18 02/05/21 16:51 BP 138/89 02/05/21 16:51 Pulse Ox 99 02/05/21 16:51 - Orders/Labs/Meds Orders: Active Orders 24 hr Category Date Time Status EKG Documentation Completion [RC] ASDIRECTED Care 02/05/21 17:27 Active Head wo Cont [CT] Stat Exams 02/05/21 17:26 Taken EKG 12 Lead [EK] Routine Ther 02/05/21 17:26 Ordered Labs: Laboratory Tests 02/05/21 02/05/21 02/05/21 Range/Units 17:40 17:40 17:40 WBC 7.9 (3.0-10.3) x10-3/uL RBC 4.17 (3.60-5.20) x10(6)uL Hgb 13.3 (11.4-15.5) g/dL Hct 38.6 (34.2-48.2) % MCV 92.6 (76.7-100.5) fL MCH 31.8 (23.9-33.9) pg MCHC 34.3 (31.9-34.8) g/dL RDW 12.8 (12.3-16.5) % Plt Count 277 (151-488) x10(3)uL MPV 8.5 (7.1-12.4) fL Neut % (Auto) 60.5 (30.8-76.2) % Lymph % (Auto) 27.6 (18.4-52.1) % Bracken % (Auto) 9.2 (4.4-15.7) % Eos % (Auto) 2.3 (0.6-8.1) % Baso % (Auto) 0.4 (0.2-1.5) % Neut # (Auto) 4.8 (1.5-6.3) x10-3/uL Lymph # (Auto) 2.2 (1.0-4.4) x10-3/uL Bracken # (Auto) 0.7 (0.3-1.0) x10-3/uL Eos # (Auto) 0.2 (0.0-0.8) x10-3/uL Baso # (Auto) 0.0 (0.0-0.1) x10-3/uL Sodium 143 (135-145) mmol/L Potassium 4.2 (3.5-5.3) mmol/L Chloride 105 (100-110) mmol/L Carbon Dioxide 29 (21-32) mmol/L BUN 14 (7-18) mg/dL Creatinine 0.8 (0.55-1.02) mg/dL Est Cr Clr Drug Dosing 98.41 mL/min Estimated GFR (MDRD) > 60 (>60) BUN/Creatinine Ratio 17.5 (9-20) Glucose 67 L (80-116) mg/dL Calcium 9.0 (8.6-10.2) mg/dL Urine HCG, Qual Negative (NEGATIVE) Departure - Departure Time of Disposition: 19:00 Disposition: Home, Self-Care 01 Condition: Good Clinical Impression: Vasovagal syncope, Headache, Closed head injury - Discharge Information Instructions: Syncope, [id number] Additional Instructions: Please read discharge instructions on vasovagal syncope Rest for the day Take tylenol and or motrin for your headache Follow up with your doctor if this syncopal episode is becoming frequent Sepsis Event Note (ED) - Evaluation Sepsis Screening Result: No Definite Risk - Focused Exam Vital Signs: Vital Signs Temp Pulse Resp BP Pulse Ox 02/05/21 16:51 36.9 C 98 18 138/89 99 - My Orders Last 24 Hours: My Active Orders 02/05/21 17:26 Head wo Cont [CT] Stat EKG 12 Lead [EK] Routine 02/05/21 17:27 EKG Documentation Completion [RC] ASDIRECTED - Assessment/Plan Last 24 Hours: My Active Orders 02/05/21 17:26 Head wo Cont [CT] Stat EKG 12 Lead [EK] Routine 02/05/21 17:27 EKG Documentation Completion [RC] ASDIRECTED
[2021-02-05 19:27] VITALS: BP 116/74; PULSE 84
== END 2021-02-05 19:15 | disposition home or self-care (01) ==
LOC: FB.ED 16:51
DX: R55 Syncope and collapse (principal); S09.90XA Unspecified injury of head, initial encounter; J45.909 Unspecified asthma, uncomplicated; E66.9 Obesity, unspecified; Z68.33 Body mass index [BMI] 33.0-33.9, adult; Z88.0 Allergy status to penicillin; Z91.040 Latex allergy status; Z88.2 Allergy status to sulfonamides; W19.XXXA Unspecified fall, initial encounter; Y99.0 Civilian activity done for income or pay
CPT/HCPCS: 36415; 70450; 80048; 81025; 85025; 93005; 99000; 99284-25

== ENCOUNTER 2022-08-14 00:44 | Emergency (ER) | payer MEDICARE, MEDICAID ==
[2022-08-14] MEDS ORDERED: Alum Hydroxide/Mag Hydroxide 30 ML, Lidocaine 2% 15 ML PO ONE ×2 (01:06)
[2022-08-14] MEDS ORDERED: Sodium Chloride 0.9% 1,000 ML IV ONE (01:06)
[2022-08-14] MEDS ORDERED: Midazolam 1 MG/ML 2 ML SDV IVPUSH ONE (01:06)
[2022-08-14 01:32] LABS: ESTIMATED GFR 133 mL/min (>60)
[2022-08-14] MEDS ORDERED: Aluminum Hydroxide/Magnesium Hydroxide Susp 30 ML Cup PO STA (02:01)
[2022-08-14] MEDS ORDERED: Aluminum Hydroxide/Magnesium Hydroxide Susp 30 ML Cup ONE (02:11)
[2022-08-14 02:33] LABS: CORONAVIRUS COVID-19 NAA NEGATIVE (NEGATIVE)
[2022-08-14 03:24] VITALS: BP 131/74; PULSE 112
== END 2022-08-14 02:58 | disposition home or self-care (01) ==
LOC: FB.ED 00:44
DX: O23.43 Unspecified infection of urinary tract in pregnancy, third trimester (principal); K21.9 Gastro-esophageal reflux disease without esophagitis; F41.9 Anxiety disorder, unspecified; Z3A.31 31 weeks gestation of pregnancy; E66.9 Obesity, unspecified; Z68.35 Body mass index [BMI] 35.0-35.9, adult; Z88.0 Allergy status to penicillin; Z91.040 Latex allergy status; Z88.2 Allergy status to sulfonamides; Z79.899 Other long term (current) drug therapy; Z20.822 Contact with and (suspected) exposure to COVID-19
CPT/HCPCS: 0240U; 36415; 80053; 81001; 83690; 84550; 85025; 87086; 96361; 96374; 99284; A9270; J2250; J7030